=== PATIENT | male | born 1945 | race Caucasian/White ===

== ENCOUNTER 2017-03-18 19:29 | Emergency (ER) | payer BC, OTHER ==
[~2017-03-18] VITALS: Ht 167.6 cm; Wt 82.0 kg
[~2017-03-18 19:29] MED LIST: FOR CHOLESTEROL; FOR HTN; [UNRECOGNIZED DRUG - OTHER]; [UNRECOGNIZED DRUG - OTHER]
[2017-03-18 19:38] VITALS: Ht 167.6 cm; Wt 82.0 kg
[2017-03-18 21:21] LABS: URINE BLOOD (Dip) POC Negative (NEGATIVE)
[2017-03-18] MEDS ORDERED: PHEN-537 PO (21:59)
--- NOTE | 2017-03-19 02:29 | ERD ---
ER Documentation Chief Complaint Date/Time DATE: 03/19/17 TIME: 02:26 Chief Complaint penile pain, painful urination x 2 weeks, on atb HPI 71-year-old male complains of burning pain in the penile region for the past 1- 2 weeks. Patient states that he is being treated with Macrobid over the last week. He describes as burning pain on the inside of the penis, he reports that there is some burning pain when he urinates. Has not had any fevers or chills or drainage. Patient denies abdominal pain, nausea or vomiting. ROS All systems reviewed and are negative except as per history of present illness. Medications Home Meds Active Scripts Phenazopyridine Hcl* (Pyridium*) 100 Mg Tab, 100 MG PO TID Y for URINARY PAIN, # 8 TAB Prov:PHILLIP ARBOLEDA PA-C 03/18/17 Reported Medications [For Prostate ] No Conflict Check 06/18/11 [For Cholesterol] No Conflict Check 06/18/11 [For Dm] No Conflict Check 06/18/11 [For Htn] No Conflict Check 06/18/11 Allergies Allergies: Coded Allergies: No Known Drug Allergies (Verified Allergy, Unknown, 03/18/17) PMhx/Soc History of Surgery: Yes (RIGHT ARM) Anesthesia Reaction: Yes Hx Neurological Disorder: No Hx Respiratory Disorders: No Hx Cardiac Disorders: Yes (htn) Hx Psychiatric Problems: No Hx Miscellaneous Medical Probl: Yes (HIGH CHOLESTEROL; dm;) Hx Alcohol Use: Yes (OCCASIONAL) Hx Substance Use: No Hx Tobacco Use: No Smoking Status: Never smoker Physical Exam Vitals Vital Signs Date Time Temp Pulse Resp B/P Pulse Ox O2 Delivery O2 Flow Rate FiO2 03/18/17 19:38 97.6 90 20 135/93 98 Physical Exam General: Well-developed, well-nourished. The patient appears in no acute distress. HEENT: Head is normocephalic, atraumatic. No scleral icterus. Neck: Supple. Nontender. Lungs: Clear to auscultation. Normal air movement. Heart: Regular rate and rhythm. S1 and S2 are normal. No murmurs, gallops, or rubs. Abdomen: Soft, nontender, nondistended. Bowel sounds are normoactive. Exam: Scrotum: Normal Hernia: None Testes/Epid: Non-tender w/ normal lie Cremaster: Reflex intact Lymph: No inguinal lymphadenopathy Discharge: None Extremities: No clubbing or cyanosis. Normal pulses. Moving extremities x 4. No weakness. Neurologic: Alert and oriented 3. No focal deficits. Skin: Normal turgor. No rash or lesions. Results 24 hrs Laboratory Tests Test 03/18/17 21:23 Bedside Urine pH (LAB) 6.0 Bedside Urine Protein (LAB) Negative Bedside Urine Glucose (UA) Negative Bedside Urine Ketones (LAB) Negative Bedside Urine Blood Negative Bedside Urine Nitrite (LAB) Negative Bedside Urine Leukocyte Esterase (L Negative Procedures/MDM ED course: Urine was obtained, there is no evidence of infection or blood or protein. Urine cultures were sent. анна's gangrene, cellulitis, appendicitis. Patient has a normal examination, urine cultures were sent at this time given his ongoing symptoms of burning despite taking antibiotics. He was advised that if he continues to have symptoms despite having urinary tract infection that the patient may be secondary evaluation with a urologist, and that this may be done outpatient. Patient's blood pressure was elevated (>120/80) but appears stable without evidence of hypertension emergency or urgency. The patient was counseled about the risks of hypertension and urged to pursue outpatient monitoring and therapy within a week with their primary care physician. Departure Diagnosis: Primary Impression: Dysuria Condition: Good Patient Instructions: Dysuria Referrals: LUDMILA DE PAZ MD,JOSH DUQUE,HERBIE WINSTON Additional Instructions: UROLOGO Specialist:Usted tiene felton condicin mdica que requiere que sumi a un especialista dentro de los prximos 1-2 bunn.POR FAVOR,CON RIVAS SEGUIMIENTO DE PRIMARIA PHSICIAN refferal. SI USTED NO TIENE UN MDICO GENERAL Y / O USTED NO PUEDE PAGAR nathan a un mdico,los siguientes zavala RECURSOS sido suministrado a usted. ES RIVAS RESPONSABILIDAD PARA SER VISTOS POR EL ESPECIALISTA: PHILLIP ARBOLEDA PA-C March 19, 2017 02:29
== END 2017-03-18 22:14 | disposition home or self-care (01) ==
LOC: FTE 19:29
DX: R30.0 Dysuria (principal); I10 Essential (primary) hypertension; E11.9 Type 2 diabetes mellitus without complications
CPT/HCPCS: 81003; 87086; 87591; 99283

== ENCOUNTER 2017-06-21 12:19 | Day surgery (SDC) | payer BC, OTHER ==
[~2017-06-21] VITALS: Ht 165.1 cm; Wt 75.0 kg
[~2017-06-21 12:19] MED LIST changes: +F; +PHEN-537 PO
[2017-06-21] MEDS ORDERED: AMLO-145 PO (12:50)
[2017-06-21 12:53] VITALS: Ht 165.1 cm; Wt 75.0 kg
[2017-06-21 13:56] VITALS: BP 162/85; PULSE 86; RESP 20
[2017-06-21] MEDS ORDERED: PROPOFOL 20 ML ONE (14:08)
--- NOTE | 2017-06-21 14:51 | OPPN ---
Date/Time of Note Date/Time of Note DATE: 06/21/17 TIME: 14:49 Operative Report Preoperative Diagnosis Change in bowel habit Postoperative Diagnosis Internal hemorrhoids Operation/Procedure Performed Colonoscopy Provider: MANNY MONACO MD Anesthesia Type: MAC Estimated blood loss: none Transfusion Required: no Specimen: none Grafts/Implants: none Complications: no MANNY MONACO MD Jun 21, 2017 14:50
[2017-06-21 15:11] VITALS: BP 145/91; PULSE 73; RESP 14
--- NOTE | 2017-06-21 19:48 | GILP ---
DATE OF PROCEDURE: 06/21/2017 PROCEDURE PERFORMED: Colonoscopy. SURGEON: Alex Valdez MD PREOPERATIVE DIAGNOSIS: Change in the bowel habits. POSTOPERATIVE DIAGNOSES: 1. Colonoscopy all the way to the cecum. 2. Melanosis coli. 3. Internal hemorrhoids. 4. No colon neoplasm was identified. INDICATION: Mr. Bernadine Cuello is a 71-year-old male patient who noticed change in the bowel habits. The patient was scheduled for colonoscopy for further evaluation. The procedure and possible complications were well explained to the patient. The patient understood and consented to the procedure. DESCRIPTION OF PROCEDURE: Under influence of anesthesia, the colonoscope was carefully introduced into the rectum and under direct vision it was advanced all the way to the cecum. Findings, the patient had melanosis coli. He also had internal hemorrhoids. No colon neoplasm was identified. He tolerated the procedure very well. There is no complications from the procedure. At the end of procedure he was awake with stable vital signs. He was discharged home in care of his family. IMPRESSION: 1. Colonoscopy all the way to the cecum. 2. Melanosis coli. 3. Internal hemorrhoids. 4. No colon neoplasm was identified. PLAN: 1. Anusol HC 2.5 percent cream b.i.d. 2. Because of the patient's age he will not need another screening colonoscopy. Dictated By: MD ELLIOTT Majano/marva/sravanthi /Document#: [id number]
== END 2017-06-21 15:12 | disposition home or self-care (01) ==
LOC: GIL 12:19
PROVIDERS: ATTEND Internal Medicine Gastroenterology
DX: R19.4 Change in bowel habit (principal); K63.89 Other specified diseases of intestine; K64.8 Other hemorrhoids; E11.9 Type 2 diabetes mellitus without complications; I10 Essential (primary) hypertension; E78.5 Hyperlipidemia, unspecified
CPT/HCPCS: 82962